=== PATIENT | male | born 1965 | race Caucasian/White ===

== ENCOUNTER 2022-05-19 09:48 | Emergency (ER) | payer MEDICAID ==
[~2022-05-19] VITALS: Ht 172.7 cm; Wt 86.4 kg
[2022-05-19 11:11] LABS: COVID AG,FIA SOURCE NASAL SWAB
[2022-05-19 11:28] LABS: INFLUENZA TYPE A NEGATIVE FOR TYPE A (NEGATIVE); INFLUENZA TYPE B NEGATIVE FOR TYPE B (NEGATIVE)
[2022-05-19 12:36] LABS: RAPID GROUP A STREP POSITIVE (NEGATIVE)
[2022-05-19 12:45] VITALS: BP 119/80
[2022-05-19] MEDS ORDERED: AMOX500C2 PO (12:50)
== END 2022-05-19 13:02 | disposition home or self-care (01) ==
LOC: EMS 10:11
DX: J02.9 Acute pharyngitis, unspecified (principal); Z20.822 Contact with and (suspected) exposure to COVID-19
CPT/HCPCS: 87430; 87804; 99283

== ENCOUNTER 2024-03-28 20:11 | Emergency (ER) | payer MEDICAID ==
[~2024-03-28] VITALS: Ht 172.7 cm; Wt 82.7 kg
[~2024-03-28 20:11] MED LIST: AMOX500C2 PO
[2024-03-28 20:20] VITALS: TEMP 97.3
[2024-03-28 21:07] LABS: ANION GAP 2 mmol/L (8-16); CALCIUM, TOTAL 8.8 mg/dL (8.8-10.5); CARBON DIOXIDE 35 mmol/L (22-29); CHLORIDE 102 mmol/L (98-107); CREATININE 0.99 mg/dL (0.60-1.30); GLOMERULAR FILTR. RATE CALC > 60 mL/min (>60); GLUCOSE,RANDOM 189 mg/dL (70-110); POTASSIUM 4.3 mmol/L (3.5-5.1); SODIUM SERUM 139 mmol/L (136-145); UREA NITROGEN, BLOOD 12 mg/dL (7-18)
[2024-03-28 21:12] LABS: BASOPHILS % (AUTO) 0.6 % (0.0-2.0); EOSINOPHILS % (AUTO) 1.4 % (1.0-6.0); HEMATOCRIT 42.9 % (41-53); HEMOGLOBIN 13.4 g/dL (13.5-17.5); LYMPHOCYTES # (AUTO) 2.7 K/uL (1.0-4.8); LYMPHOCYTES % (AUTO) 34.6 % (22.0-44.0); MEAN CORPUSCULAR HEMOGLOBIN 26.1 pg (26.0-34.0); MEAN CORPUSCULAR HGB CONC 31.3 G/dL (31.0-37.0); MEAN CORPUSCULAR VOLUME 83 fL (80-100); MONOCYTES # (AUTO) 0.7 K/uL (0.1-1.0); MONOCYTES % (AUTO) 8.9 % (2.0-9.0); NEUTROPHILS # (AUTO) 4.3 K/uL (1.8-7.7); NEUTROPHILS % (AUTO) 54.5 % (40.0-70.0); PLATELET COUNT (AUTO) 314 K/uL (150-450); RED BLOOD CELL COUNT(AUTO) 5.15 MIL/uL (4.50-5.90); RED CELL DISTRIBUTION WIDTH 14.4 % (11.5-14.5); WHITE BLOOD COUNT (AUTO) 7.9 K/uL (4.5-11.0)
[2024-03-28 21:38] VITALS: BP 99/68; PULSE 68; RESP 16
== END 2024-03-28 23:15 | disposition home or self-care (01) ==
LOC: EMS 20:11
DX: R42 Dizziness and giddiness (principal)
CPT/HCPCS: 80048; 82962; 85025; 93005; 99284